=== PATIENT | female | born 1985 | race Two or more races ===

== ENCOUNTER 2025-01-19 07:34 | Outpatient (CLI) | payer OTHER ==
[2025-01-19 08:08] LABS: Hematocrit 34.4 % (36.0-46.0); Hemoglobin 11.4 g/dL (12.2-16.2); Mean Corpuscular Hemoglobin 26.9 pg (28.0-32.0); Mean Corpuscular Volume 81.1 fL (80.0-100.0); Nucleated Red Blood Cells % 0.0 %
[2025-01-19 09:11] LABS: Alanine Aminotransferase 18 U/L (7-40); Albumin 4.2 g/dL (3.2-4.8); Alkaline Phosphatase 83 U/L (46-116); Anion Gap 10 (5-15); BUN/Creatinine Ratio 21.2 (10.0-20.0); Blood Urea Nitrogen 14 mg/dL (9-23); Carbon Dioxide 26 mmol/L (20-31); Chloride 106 mmol/L (98-107); Cholesterol 165 mg/dL (< 200); Glucose 104 mg/dL (74-106); HDL Cholesterol 45 mg/dL (40-59); Potassium 3.7 mmol/L (3.5-5.1); Sodium 142 mmol/L (136-145); Total Protein 6.4 g/dL (5.7-8.2); Triglycerides 90 mg/dL (< 150)
[2025-01-19 09:12] LABS: Bilirubin, Total 0.4 mg/dL (0.2-1.0)
[2025-01-19 09:14] LABS: Calcium 8.6 mg/dL (8.7-10.4)
== END 2025-01-19 17:00 | disposition home or self-care (01) ==
LOC: LAB 07:34
PROVIDERS: ATTEND Internal Medicine
DX: E11.9 Type 2 diabetes mellitus without complications (principal); E78.5 Hyperlipidemia, unspecified; E03.9 Hypothyroidism, unspecified; E66.9 Obesity, unspecified; N92.0 Excessive and frequent menstruation with regular cycle; F31.9 Bipolar disorder, unspecified; Z00.00 Encounter for general adult medical examination without abnormal findings
CPT/HCPCS: 36415; 80053; 80061; 80178; 82306; 82607; 82746; 83036; 84207; 84443; 85025